=== PATIENT | male | born 1960 | race Two or more races ===

== ENCOUNTER 2021-08-12 07:25 | Inpatient (IN) | payer MEDICAID, OTHER ==
[~2021-08-12] VITALS: Ht 170.2 cm; Wt 112.0 kg
[2021-08-12] MEDS ORDERED: cefTRIAXone 1GM/50ML D5W 50 ML IV ONE (08:45)
[2021-08-12] MEDS ORDERED: AZITHROMYCIN 250 MG TAB PO ONE (08:45)
[2021-08-12 08:52] LABS: Basophils # (auto) 0 10 ^3/uL (0-0.2); Basophils % (auto) 0.3 % (0.0-2.0); Eosinophils # (auto) 0 10 ^3/uL (0-0.8); Hematocrit 46.2 % (41.0-53.0); Hemoglobin 15.9 g/dL (13.5-17.5); Lymphocytes # (auto) 2.2 10 ^3/uL (0.4-5.4); Lymphocytes % (auto) 33.7 % (10.0-50.0); Mean Corpuscular Hemoglobin 30.4 pg (28.0-32.0); Mean Corpuscular Hgb Conc. 34.4 g/dL (32.0-36.0); Mean Corpuscular Volume 88.4 fL (80.0-100.0); Monocytes # (auto) 0.6 10 ^3/uL (0-1.3); Monocytes % (auto) 9.2 % (0.0-12.0); Neutrophils # (auto) 3.7 10 ^3/uL (1.6-8.6); Neutrophils % (auto) 56.8 % (37.0-80.0); Nucleated Red Blood Cells % 0.1 %; Red Blood Cells 5.22 10^6/uL (4.5-5.90); Red Cell Distribution Width 13.3 % (11.8-14.3); White Blood Cell 6.6 10^3/uL (4.4-10.8)
[2021-08-12 09:06] LABS: Albumin 3.8 g/dL (3.4-5.0); Calcium 8.6 mg/dL (8.5-10.1); Magnesium 2.9 mg/dL (1.6-2.6); Potassium 3.6 mmol/L (3.5-5.1)
[2021-08-12 09:11] LABS: BUN/Creatinine Ratio 13.4; Bilirubin, Total 0.4 mg/dL (0.2-1.0); Total Protein 7.9 g/dL (6.4-8.2)
[2021-08-12] MEDS ORDERED: VENL75CA3 PO (09:18)
[2021-08-12] MEDS ORDERED: LEVE500T32 PO (09:18)
[2021-08-12] MEDS ORDERED: RIS1T PO (09:18)
[2021-08-12] MEDS ORDERED: LACO100T PO (09:18)
[2021-08-12] MEDS ORDERED: LABE100T4 PO (09:18)
[2021-08-12] MEDS ORDERED: LAMO200T2 PO (09:18)
[2021-08-12] MEDS ORDERED: FURO1TAB33 PO (09:18)
[2021-08-12] MEDS ORDERED: CLOB10TA PO (09:18)
[2021-08-12] MEDS ORDERED: MIRT-68 PO (09:18)
[2021-08-12] MEDS ORDERED: lamoTRIgine 100 MG TAB PO ONE (11:30)
[2021-08-12] MEDS ORDERED: levETIRAcetam 500 MG TAB PO ONE (11:30)
[2021-08-12] MEDS ORDERED: REMDESIVIR PER PHARMACY 0 ML IV SCH (12:00)
[2021-08-12] MEDS ORDERED: NITROGLYCERIN 0.4 MG SL TAB SL PRN (12:15)
[2021-08-12] MEDS ORDERED: DOCUSATE SOD 100 MG CAP PO PRN (12:15)
[2021-08-12] MEDS ORDERED: MORPHINE SULFATE 4 MG/ML SYR/VIAL IV PRN (12:15)
[2021-08-12] MEDS ORDERED: MORPHINE SULFATE INJECTION 2 MG/ML SYRG IV PRN (12:15)
[2021-08-12] MEDS ORDERED: ONDANSETRON HCL 4 MG/2 ML VIAL IV PRN (12:15)
[2021-08-12] MEDS ORDERED: TEMAZEPAM 15 MG CAP PO PRN (12:15)
[2021-08-12] MEDS ORDERED: HYDROcodone-ACET 5/325MG TAB PO PRN (12:15)
[2021-08-12] MEDS ORDERED: REMDESIVIR 200 MG in NS 210ml LOADING DOSE ADULT IV ONE (18:30)
[2021-08-12] MEDS: ALBUTEROL SULF HFA 90MCG INH 200DOSE IN PRN (19:51)
[2021-08-12] MEDS: BUDESONIDE (INHALATION) 180 MCG IH IN SCH (19:51)
[2021-08-12 20:38] LABS: Urine Bacteria FEW /hpf (None Seen); Urine Blood Negative /uL (Negative); Urine Mucus FEW (None Seen); Urine Specific Gravity 1.032 (1.001-1.035); Urine WBC 1 /hpf (0 - 3)
[2021-08-12] MEDS ORDERED: LACOSAMIDE 100 MG PO SCH (22:00)
[2021-08-12] MEDS ORDERED: LAMOTRIGINE PO SCH (22:00)
[2021-08-12] MEDS: levETIRAcetam 500 MG TAB PO SCH (22:28)
[2021-08-12] MEDS: ENOXAPARIN SOD 40 MG/0.4 ML SYRINGE SC SCH (22:29)
[2021-08-13 01:52] VITALS: BP 130/67
[2021-08-13 04:56] VITALS: BP 122/75
[2021-08-13] MEDS: BUDESONIDE (INHALATION) 180 MCG IH IN SCH ×2 (06:45→19:24)
[2021-08-13 07:33] LABS: Basophils # (auto) 0 10 ^3/uL (0-0.2); Basophils % (auto) 0.7 % (0.0-2.0); Eosinophils # (auto) 0 10 ^3/uL (0-0.8); Eosinophils % (auto) 0.2 % (0.0-7.0); Hematocrit 45.6 % (41.0-53.0); Hemoglobin 15.4 g/dL (13.5-17.5); Lymphocytes # (auto) 1.8 10 ^3/uL (0.4-5.4); Lymphocytes % (auto) 26.1 % (10.0-50.0); Mean Corpuscular Hemoglobin 30.2 pg (28.0-32.0); Mean Corpuscular Hgb Conc. 33.8 g/dL (32.0-36.0); Mean Corpuscular Volume 89.4 fL (80.0-100.0); Monocytes # (auto) 0.4 10 ^3/uL (0-1.3); Monocytes % (auto) 5.7 % (0.0-12.0); Neutrophils # (auto) 4.5 10 ^3/uL (1.6-8.6); Neutrophils % (auto) 67.3 % (37.0-80.0); Nucleated Red Blood Cells % 0.1 %; Red Cell Distribution Width 13.5 % (11.8-14.3); White Blood Cell 6.7 10^3/uL (4.4-10.8)
[2021-08-13 07:50] LABS: Potassium 3.9 mmol/L (3.5-5.1)
[2021-08-13 07:57] LABS: Albumin 3.4 g/dL (3.4-5.0); BUN/Creatinine Ratio 18.9; Bilirubin, Total 0.8 mg/dL (0.2-1.0); Calcium 7.9 mg/dL (8.5-10.1); Magnesium 3.4 mg/dL (1.6-2.6); Total Protein 6.7 g/dL (6.4-8.2)
[2021-08-13] MEDS: ALBUTEROL SULF HFA 90MCG INH 200DOSE IN PRN ×2 (08:47→23:26)
[2021-08-13 09:00] VITALS: BP 127/77
[2021-08-13] MEDS: DexAMETHasone SOD PHOS 10MG/1ML VIAL INJ IV SCH (09:21)
[2021-08-13] MEDS: ENOXAPARIN SOD 40 MG/0.4 ML SYRINGE SC SCH ×2 (09:21→21:57)
[2021-08-13] MEDS: AZITHROMYCIN 500MG/ 250ML 250 ML IV SCH (09:21)
[2021-08-13] MEDS: ASCORBIC ACID 1,000 MG TAB PO SCH (09:22)
[2021-08-13] MEDS: levETIRAcetam 500 MG TAB PO SCH ×2 (09:22→21:46)
[2021-08-13] MEDS: ZINC SULFATE 220mg CAP or TAB PO SCH (09:22)
[2021-08-13] MEDS: CHOLECALCIFEROL (VITD3) 2,000 UNIT CAP/TAB PO SCH (09:22)
[2021-08-13] MEDS: VENLAFAXINE HCL 37.5mg XR cap PO SCH (09:23)
[2021-08-13] MEDS: ACETAMINOPHEN 500 MG TAB PO PRN (09:32)
[2021-08-13 12:32] VITALS: BP 111/66
[2021-08-13] MEDS: REMDESIVIR 100mg 100 MG in SODIUM CHL 0.9% 230 ML IV SCH (15:19)
[2021-08-13 16:34] VITALS: BP 106/62
[2021-08-13] MEDS: risperiDONE 1 MG TAB PO SCH (21:43)
[2021-08-13] MEDS: LACOSAMIDE 50 MG TAB PO SCH (21:45)
[2021-08-13] MEDS: lamoTRIgine 100 MG TAB PO SCH (21:45)
[2021-08-13 22:00] VITALS: BP 126/76
[2021-08-14 05:00] VITALS: BP 119/82
[2021-08-14 09:28] VITALS: BP 121/76
[2021-08-14] MEDS: BUDESONIDE (INHALATION) 180 MCG IH IN SCH ×2 (09:31→19:14)
[2021-08-14] MEDS: ALBUTEROL SULF HFA 90MCG INH 200DOSE IN PRN ×2 (09:31→19:14)
[2021-08-14] MEDS: CHOLECALCIFEROL (VITD3) 2,000 UNIT CAP/TAB PO SCH (10:00)
[2021-08-14] MEDS: LACOSAMIDE 50 MG TAB PO SCH ×2 (10:00→22:27)
[2021-08-14] MEDS: AZITHROMYCIN 500MG/ 250ML 250 ML IV SCH (10:04)
[2021-08-14] MEDS: ENOXAPARIN SOD 40 MG/0.4 ML SYRINGE SC SCH ×2 (10:04→22:28)
[2021-08-14] MEDS: VENLAFAXINE HCL 37.5mg XR cap PO SCH (10:05)
[2021-08-14] MEDS: lamoTRIgine 100 MG TAB PO SCH ×2 (10:05→22:27)
[2021-08-14] MEDS: ASCORBIC ACID 1,000 MG TAB PO SCH (10:05)
[2021-08-14] MEDS: ZINC SULFATE 220mg CAP or TAB PO SCH (10:05)
[2021-08-14] MEDS: levETIRAcetam 500 MG TAB PO SCH ×2 (10:05→22:27)
[2021-08-14] MEDS: DexAMETHasone SOD PHOS 10MG/1ML VIAL INJ IV SCH (10:05)
[2021-08-14 13:00] VITALS: BP 103/55
[2021-08-14] MEDS: REMDESIVIR 100mg 100 MG in SODIUM CHL 0.9% 230 ML IV SCH (15:07)
[2021-08-14 17:21] VITALS: BP 113/53
[2021-08-14 18:09] LABS: Albumin 3.1 g/dL (3.4-5.0); Calcium 7.8 mg/dL (8.5-10.1); Potassium 4.4 mmol/L (3.5-5.1)
[2021-08-14 18:12] LABS: Bilirubin, Total 0.4 mg/dL (0.2-1.0); Total Protein 6.6 g/dL (6.4-8.2)
[2021-08-14 22:00] VITALS: BP 104/62
[2021-08-14] MEDS: risperiDONE 1 MG TAB PO SCH (22:27)
[2021-08-15 05:00] VITALS: BP 101/59
[2021-08-15 05:59] LABS: Albumin 2.9 g/dL (3.4-5.0); BUN/Creatinine Ratio 25.3; Calcium 8.1 mg/dL (8.5-10.1); Potassium 4.4 mmol/L (3.5-5.1)
[2021-08-15 06:02] LABS: Bilirubin, Total 0.4 mg/dL (0.2-1.0); Total Protein 6.3 g/dL (6.4-8.2)
[2021-08-15 08:00] VITALS: BP 105/65
[2021-08-15] MEDS: BUDESONIDE (INHALATION) 180 MCG IH IN SCH ×2 (09:11→20:17)
[2021-08-15] MEDS: ALBUTEROL SULF HFA 90MCG INH 200DOSE IN PRN ×2 (09:11→20:18)
[2021-08-15] MEDS: DexAMETHasone SOD PHOS 10MG/1ML VIAL INJ IV SCH (10:01)
[2021-08-15] MEDS: AZITHROMYCIN 500MG/ 250ML 250 ML IV SCH (10:01)
[2021-08-15] MEDS: ZINC SULFATE 220mg CAP or TAB PO SCH (10:02)
[2021-08-15] MEDS: levETIRAcetam 500 MG TAB PO SCH ×2 (10:03→22:43)
[2021-08-15] MEDS: lamoTRIgine 100 MG TAB PO SCH ×2 (10:03→22:43)
[2021-08-15] MEDS: VENLAFAXINE HCL 37.5mg XR cap PO SCH (10:03)
[2021-08-15] MEDS: LACOSAMIDE 50 MG TAB PO SCH ×2 (10:04→22:43)
[2021-08-15] MEDS: ASCORBIC ACID 1,000 MG TAB PO SCH (10:04)
[2021-08-15] MEDS: CHOLECALCIFEROL (VITD3) 2,000 UNIT CAP/TAB PO SCH (10:04)
[2021-08-15] MEDS: ENOXAPARIN SOD 40 MG/0.4 ML SYRINGE SC SCH ×2 (10:04→22:44)
[2021-08-15 12:00] VITALS: BP 109/66
[2021-08-15] MEDS: REMDESIVIR 100mg 100 MG in SODIUM CHL 0.9% 230 ML IV SCH (15:31)
[2021-08-15 16:00] VITALS: BP 120/75
[2021-08-15 22:00] VITALS: BP 115/78
[2021-08-15] MEDS: risperiDONE 1 MG TAB PO SCH (22:43)
[2021-08-16 05:00] VITALS: BP 107/65
[2021-08-16] MEDS: ALBUTEROL SULF HFA 90MCG INH 200DOSE IN PRN ×2 (05:44→19:05)
[2021-08-16] MEDS: BUDESONIDE (INHALATION) 180 MCG IH IN SCH ×2 (05:44→19:05)
[2021-08-16 06:23] LABS: Albumin 2.8 g/dL (3.4-5.0); Anion Gap 6 (5-15); Calcium 8.2 mg/dL (8.5-10.1); Carbon Dioxide 27 mmol/L (21-32); Chloride 109 mmol/L (98-107); Glucose 180 mg/dL (74-106); Potassium 4.4 mmol/L (3.5-5.1); Sodium 142 mmol/L (136-145)
[2021-08-16 06:25] LABS: GFR African American 120 mL/min; GFR Non-African American 99 mL/min
[2021-08-16 06:28] LABS: Alanine Aminotransferase 37 U/L (16-61); Alkaline Phosphatase 42 U/L (45-117); Aspartate Aminotransferase 45 U/L (15-37); Bilirubin, Total 0.6 mg/dL (0.2-1.0); Total Protein 6.7 g/dL (6.4-8.2)
[2021-08-16 08:00] VITALS: BP 128/91
[2021-08-16 09:00] VITALS: BP 138/76
[2021-08-16 09:47] LABS: BUN/Creatinine Ratio 22.6; Blood Urea Nitrogen 19 mg/dL (7-18)
[2021-08-16] MEDS: DexAMETHasone SOD PHOS 10MG/1ML VIAL INJ IV SCH (10:39)
[2021-08-16] MEDS: LACOSAMIDE 50 MG TAB PO SCH ×2 (10:39→21:48)
[2021-08-16] MEDS: ENOXAPARIN SOD 40 MG/0.4 ML SYRINGE SC SCH ×2 (10:39→21:48)
[2021-08-16] MEDS: VENLAFAXINE HCL 37.5mg XR cap PO SCH (10:40)
[2021-08-16] MEDS: ZINC SULFATE 220mg CAP or TAB PO SCH (10:40)
[2021-08-16] MEDS: CHOLECALCIFEROL (VITD3) 2,000 UNIT CAP/TAB PO SCH (10:40)
[2021-08-16] MEDS: lamoTRIgine 100 MG TAB PO SCH ×2 (10:40→21:48)
[2021-08-16] MEDS: levETIRAcetam 500 MG TAB PO SCH ×2 (10:41→21:48)
[2021-08-16] MEDS: ASCORBIC ACID 1,000 MG TAB PO SCH (10:42)
[2021-08-16] MEDS: AZITHROMYCIN 500MG/ 250ML 250 ML IV SCH (11:28)
[2021-08-16 13:00] VITALS: BP 128/91
[2021-08-16] MEDS: REMDESIVIR 100mg 100 MG in SODIUM CHL 0.9% 230 ML IV SCH (16:07)
[2021-08-16 17:00] VITALS: BP 144/68
[2021-08-16 21:42] VITALS: BP 125/71
[2021-08-16] MEDS: risperiDONE 1 MG TAB PO SCH (21:48)
[2021-08-17 05:00] VITALS: BP 122/70
[2021-08-17 08:47] VITALS: BP 133/73
[2021-08-17] MEDS: ALBUTEROL SULF HFA 90MCG INH 200DOSE IN PRN ×2 (09:29→19:31)
[2021-08-17] MEDS: BUDESONIDE (INHALATION) 180 MCG IH IN SCH ×2 (09:29→18:53)
[2021-08-17] MEDS: DexAMETHasone SOD PHOS 10MG/1ML VIAL INJ IV SCH (10:00)
[2021-08-17] MEDS: AZITHROMYCIN 500MG/ 250ML 250 ML IV SCH (10:00)
[2021-08-17] MEDS: levETIRAcetam 500 MG TAB PO SCH ×2 (10:30→21:31)
[2021-08-17] MEDS: VENLAFAXINE HCL 37.5mg XR cap PO SCH (10:30)
[2021-08-17] MEDS: ZINC SULFATE 220mg CAP or TAB PO SCH (10:30)
[2021-08-17] MEDS: lamoTRIgine 100 MG TAB PO SCH ×2 (10:30→21:31)
[2021-08-17] MEDS: CHOLECALCIFEROL (VITD3) 2,000 UNIT CAP/TAB PO SCH (10:31)
[2021-08-17] MEDS: ASCORBIC ACID 1,000 MG TAB PO SCH (10:31)
[2021-08-17] MEDS: ENOXAPARIN SOD 40 MG/0.4 ML SYRINGE SC SCH ×2 (10:31→21:32)
[2021-08-17] MEDS: LACOSAMIDE 50 MG TAB PO SCH ×2 (10:31→21:32)
[2021-08-17 12:47] VITALS: BP 125/69
[2021-08-17 17:00] VITALS: BP 125/79
[2021-08-17] MEDS: risperiDONE 1 MG TAB PO SCH (21:32)
[2021-08-17 21:33] VITALS: BP 132/74
[2021-08-18 04:30] VITALS: BP 124/82
[2021-08-18] MEDS: ALBUTEROL SULF HFA 90MCG INH 200DOSE IN PRN ×2 (06:55→19:06)
[2021-08-18] MEDS: BUDESONIDE (INHALATION) 180 MCG IH IN SCH ×3 (06:55→19:06)
[2021-08-18 08:00] VITALS: BP 119/58
[2021-08-18] MEDS: ASCORBIC ACID 1,000 MG TAB PO SCH (10:00)
[2021-08-18] MEDS: ZINC SULFATE 220mg CAP or TAB PO SCH (10:00)
[2021-08-18] MEDS: CHOLECALCIFEROL (VITD3) 2,000 UNIT CAP/TAB PO SCH (10:00)
[2021-08-18] MEDS: HALOPERIDOL LACTATE 5 MG/ML INJ VIAL IM PRN (10:53)
[2021-08-18 12:00] VITALS: BP 137/71
[2021-08-18] MEDS: levETIRAcetam 500 MG TAB PO SCH ×2 (15:53→22:24)
[2021-08-18] MEDS: VENLAFAXINE HCL 37.5mg XR cap PO SCH (15:53)
[2021-08-18] MEDS: lamoTRIgine 100 MG TAB PO SCH ×2 (15:53→22:25)
[2021-08-18] MEDS: DexAMETHasone SOD PHOS 10MG/1ML VIAL INJ IV SCH (15:53)
[2021-08-18] MEDS: LACOSAMIDE 50 MG TAB PO SCH ×2 (15:54→22:25)
[2021-08-18] MEDS: ENOXAPARIN SOD 40 MG/0.4 ML SYRINGE SC SCH ×2 (15:54→22:26)
[2021-08-18 16:00] VITALS: BP 137/72
[2021-08-18 22:00] VITALS: BP 143/84
[2021-08-18] MEDS: risperiDONE 1 MG TAB PO SCH (22:25)
[2021-08-19 05:00] VITALS: BP 113/72
[2021-08-19] MEDS: ALBUTEROL SULF HFA 90MCG INH 200DOSE IN PRN ×2 (06:00→21:47)
[2021-08-19] MEDS: BUDESONIDE (INHALATION) 180 MCG IH IN SCH ×2 (06:00→21:47)
[2021-08-19 08:00] VITALS: BP 115/62
[2021-08-19 10:25] LABS: Basophils # (auto) 0 10 ^3/uL (0-0.2); Basophils % (auto) 0.3 % (0.0-2.0); Eosinophils # (auto) 0 10 ^3/uL (0-0.8); Eosinophils % (auto) 0.1 % (0.0-7.0); Hematocrit 41.6 % (41.0-53.0); Hemoglobin 14.1 g/dL (13.5-17.5); Lymphocytes % (auto) 11.1 % (10.0-50.0); Mean Corpuscular Hemoglobin 30.2 pg (28.0-32.0); Mean Corpuscular Volume 88.7 fL (80.0-100.0); Monocytes # (auto) 0.8 10 ^3/uL (0-1.3); Monocytes % (auto) 8.5 % (0.0-12.0); Neutrophils # (auto) 7.2 10 ^3/uL (1.6-8.6); Nucleated Red Blood Cells % 0.1 %; Red Blood Cells 4.69 10^6/uL (4.5-5.90); White Blood Cell 9.1 10^3/uL (4.4-10.8)
[2021-08-19 10:44] LABS: Albumin 2.7 g/dL (3.4-5.0); Calcium 8.3 mg/dL (8.5-10.1); Potassium 4.1 mmol/L (3.5-5.1)
[2021-08-19 10:48] LABS: BUN/Creatinine Ratio 27.2; Bilirubin, Total 0.6 mg/dL (0.2-1.0); Total Protein 6.3 g/dL (6.4-8.2)
[2021-08-19] MEDS: DexAMETHasone SOD PHOS 10MG/1ML VIAL INJ IV SCH (10:49)
[2021-08-19] MEDS: lamoTRIgine 100 MG TAB PO SCH ×2 (10:50→22:37)
[2021-08-19] MEDS: levETIRAcetam 500 MG TAB PO SCH ×2 (10:50→22:37)
[2021-08-19] MEDS: ZINC SULFATE 220mg CAP or TAB PO SCH (10:50)
[2021-08-19] MEDS: VENLAFAXINE HCL 37.5mg XR cap PO SCH (10:50)
[2021-08-19] MEDS: CHOLECALCIFEROL (VITD3) 2,000 UNIT CAP/TAB PO SCH (10:51)
[2021-08-19] MEDS: ASCORBIC ACID 1,000 MG TAB PO SCH (10:51)
[2021-08-19] MEDS: LACOSAMIDE 50 MG TAB PO SCH ×2 (10:51→22:38)
[2021-08-19] MEDS: ENOXAPARIN SOD 40 MG/0.4 ML SYRINGE SC SCH ×2 (10:51→22:38)
[2021-08-19] MEDS: HALOPERIDOL LACTATE 5 MG/ML INJ VIAL IM PRN (10:54)
[2021-08-19 12:00] VITALS: BP 113/63
[2021-08-19 16:00] VITALS: BP 104/61
[2021-08-19] MEDS: Glucerna Carbsteady SHAKE Vanilla 8oz PO SCH (18:00)
[2021-08-19 22:00] VITALS: BP 121/69
[2021-08-19] MEDS: risperiDONE 1 MG TAB PO SCH (22:38)
[2021-08-20] MEDS: LORazepam 2MG/ML-1ML VIAL IV PRN ×2 (04:03→22:54)
[2021-08-20 05:00] VITALS: BP 130/70
[2021-08-20 06:09] LABS: Basophils # (auto) 0 10 ^3/uL (0-0.2); Hemoglobin 14.3 g/dL (13.5-17.5); Lymphocytes # (auto) 1.3 10 ^3/uL (0.4-5.4); Monocytes # (auto) 0.7 10 ^3/uL (0-1.3); Nucleated Red Blood Cells % 0.1 %; Red Cell Distribution Width 13.3 % (11.8-14.3)
[2021-08-20 06:15] LABS: Basophils % (auto) 0.3 % (0.0-2.0); Eosinophils # (auto) 0.1 10 ^3/uL (0-0.8); Eosinophils % (auto) 0.5 % (0.0-7.0); Hematocrit 42.4 % (41.0-53.0); Lymphocytes % (auto) 12.7 % (10.0-50.0); Mean Corpuscular Hemoglobin 30.2 pg (28.0-32.0); Mean Corpuscular Hgb Conc. 33.8 g/dL (32.0-36.0); Mean Corpuscular Volume 89.3 fL (80.0-100.0); Monocytes % (auto) 7.5 % (0.0-12.0); Neutrophils # (auto) 7.9 10 ^3/uL (1.6-8.6); Red Blood Cells 4.75 10^6/uL (4.5-5.90)
[2021-08-20 06:41] LABS: Albumin 2.6 g/dL (3.4-5.0); BUN/Creatinine Ratio 20.6; Bilirubin, Total 0.6 mg/dL (0.2-1.0); CRP High Sensitivity 14.2 mg/dL (< 0.3); Calcium 8.6 mg/dL (8.5-10.1); Magnesium 2.4 mg/dL (1.6-2.6); Phosphorus 2.8 mg/dL (2.5-4.90); Total Protein 7.4 g/dL (6.4-8.2)
[2021-08-20] MEDS: BUDESONIDE (INHALATION) 180 MCG IH IN SCH ×2 (07:20→22:11)
[2021-08-20] MEDS: ALBUTEROL SULF HFA 90MCG INH 200DOSE IN PRN (07:20)
[2021-08-20] MEDS: Glucerna Carbsteady SHAKE Vanilla 8oz PO SCH ×3 (08:00→18:05)
[2021-08-20 09:00] VITALS: BP 118/70
[2021-08-20] MEDS: CHOLECALCIFEROL (VITD3) 2,000 UNIT CAP/TAB PO SCH (10:00)
[2021-08-20] MEDS: LACOSAMIDE 50 MG TAB PO SCH ×2 (10:00→22:14)
[2021-08-20] MEDS: ZINC SULFATE 220mg CAP or TAB PO SCH (10:00)
[2021-08-20] MEDS: ASCORBIC ACID 1,000 MG TAB PO SCH (10:00)
[2021-08-20] MEDS: ENOXAPARIN SOD 40 MG/0.4 ML SYRINGE SC SCH ×2 (10:00→22:14)
[2021-08-20] MEDS: lamoTRIgine 100 MG TAB PO SCH ×2 (10:00→22:13)
[2021-08-20] MEDS: DexAMETHasone SOD PHOS 10MG/1ML VIAL INJ IV SCH (10:00)
[2021-08-20 10:05] VITALS: BP 118/70
[2021-08-20] MEDS: VENLAFAXINE HCL 37.5mg XR cap PO SCH (10:30)
[2021-08-20] MEDS: levETIRAcetam 500 MG TAB PO SCH ×2 (12:24→22:12)
[2021-08-20 13:00] VITALS: BP 120/67
[2021-08-20 16:54] VITALS: BP 107/65
[2021-08-20] MEDS: risperiDONE 1 MG TAB PO SCH (22:13)
[2021-08-21] MEDS: ALBUTEROL SULF HFA 90MCG INH 200DOSE IN PRN ×2 (01:58→13:50)
[2021-08-21 05:00] VITALS: BP 136/63
[2021-08-21] MEDS: Glucerna Carbsteady SHAKE Vanilla 8oz PO SCH ×3 (07:48→17:46)
[2021-08-21 09:00] VITALS: BP 118/72
[2021-08-21] MEDS: ENOXAPARIN SOD 40 MG/0.4 ML SYRINGE SC SCH ×3 (10:00→23:11)
[2021-08-21] MEDS: VENLAFAXINE HCL 37.5mg XR cap PO SCH (10:00)
[2021-08-21] MEDS: ZINC SULFATE 220mg CAP or TAB PO SCH (10:00)
[2021-08-21] MEDS: LACOSAMIDE 50 MG TAB PO SCH ×2 (10:00→23:11)
[2021-08-21] MEDS: lamoTRIgine 100 MG TAB PO SCH ×2 (10:00→23:11)
[2021-08-21] MEDS: ASCORBIC ACID 1,000 MG TAB PO SCH (10:00)
[2021-08-21] MEDS: CHOLECALCIFEROL (VITD3) 2,000 UNIT CAP/TAB PO SCH (10:00)
[2021-08-21] MEDS: DexAMETHasone SOD PHOS 10MG/1ML VIAL INJ IV SCH (11:06)
[2021-08-21 13:00] VITALS: BP 120/68
[2021-08-21] MEDS: BUDESONIDE (INHALATION) 180 MCG IH IN SCH ×2 (13:50→22:00)
[2021-08-21 16:51] VITALS: BP 116/57
[2021-08-21] MEDS: LORazepam 2MG/ML-1ML VIAL IV PRN (17:47)
[2021-08-21 22:00] VITALS: BP 112/61
[2021-08-21] MEDS: risperiDONE 1 MG TAB PO SCH (23:11)
[2021-08-22 05:00] VITALS: BP 131/72
[2021-08-22] MEDS: ALBUTEROL SULF HFA 90MCG INH 200DOSE IN PRN ×2 (06:34→21:49)
[2021-08-22] MEDS: BUDESONIDE (INHALATION) 180 MCG IH IN SCH ×2 (06:34→21:49)
[2021-08-22 07:25] LABS: Basophils # (auto) 0.2 10 ^3/uL (0-0.2); Basophils % (auto) 1.6 % (0.0-2.0); Eosinophils # (auto) 0.1 10 ^3/uL (0-0.8); Eosinophils % (auto) 0.9 % (0.0-7.0); Hematocrit 42.9 % (41.0-53.0); Hemoglobin 14.1 g/dL (13.5-17.5); Lymphocytes # (auto) 0.7 10 ^3/uL (0.4-5.4); Lymphocytes % (auto) 6.5 % (10.0-50.0); Mean Corpuscular Hemoglobin 29.9 pg (28.0-32.0); Mean Corpuscular Hgb Conc. 32.9 g/dL (32.0-36.0); Mean Corpuscular Volume 90.8 fL (80.0-100.0); Monocytes # (auto) 0.5 10 ^3/uL (0-1.3); Monocytes % (auto) 4.7 % (0.0-12.0); Neutrophils # (auto) 9.6 10 ^3/uL (1.6-8.6); Neutrophils % (auto) 86.3 % (37.0-80.0); Nucleated Red Blood Cells % 0.1 %; Red Blood Cells 4.73 10^6/uL (4.5-5.90); Red Cell Distribution Width 13.5 % (11.8-14.3); White Blood Cell 11.2 10^3/uL (4.4-10.8)
[2021-08-22 07:30] LABS: Albumin 2.5 g/dL (3.4-5.0); Calcium 8.3 mg/dL (8.5-10.1); Magnesium 3.5 mg/dL (1.6-2.6); Potassium 4.3 mmol/L (3.5-5.1)
[2021-08-22 07:34] LABS: BUN/Creatinine Ratio 30.2; Bilirubin, Total 0.7 mg/dL (0.2-1.0); Phosphorus 2.7 mg/dL (2.5-4.90); Total Protein 6.6 g/dL (6.4-8.2)
[2021-08-22] MEDS: Glucerna Carbsteady SHAKE Vanilla 8oz PO SCH ×3 (07:51→18:17)
[2021-08-22 09:00] VITALS: BP 123/66
[2021-08-22] MEDS: VENLAFAXINE HCL 37.5mg XR cap PO SCH (10:39)
[2021-08-22] MEDS: ZINC SULFATE 220mg CAP or TAB PO SCH (10:39)
[2021-08-22] MEDS: DexAMETHasone SOD PHOS 10MG/1ML VIAL INJ IV SCH (10:39)
[2021-08-22] MEDS: ASCORBIC ACID 1,000 MG TAB PO SCH (10:39)
[2021-08-22] MEDS: LACOSAMIDE 50 MG TAB PO SCH ×2 (10:39→23:19)
[2021-08-22] MEDS: CHOLECALCIFEROL (VITD3) 2,000 UNIT CAP/TAB PO SCH (10:40)
[2021-08-22] MEDS: lamoTRIgine 100 MG TAB PO SCH ×2 (10:40→23:17)
[2021-08-22] MEDS: ENOXAPARIN SOD 40 MG/0.4 ML SYRINGE SC SCH ×2 (10:40→23:19)
[2021-08-22 13:00] VITALS: BP 126/70
[2021-08-22] MEDS: ACETAMINOPHEN 500 MG TAB PO PRN (14:57)
[2021-08-22 17:00] VITALS: BP 122/71
[2021-08-22] MEDS: SODIUM CHLORIDE 0.9% 1,000 ML IV SCH (18:17)
[2021-08-22 22:00] VITALS: BP 139/74
[2021-08-22] MEDS: risperiDONE 1 MG TAB PO SCH (23:18)
[2021-08-23 05:00] VITALS: BP 123/71
[2021-08-23] MEDS: BUDESONIDE (INHALATION) 180 MCG IH IN SCH ×2 (05:50→22:44)
[2021-08-23] MEDS: ALBUTEROL SULF HFA 90MCG INH 200DOSE IN PRN (05:50)
[2021-08-23] MEDS: Glucerna Carbsteady SHAKE Vanilla 8oz PO SCH ×3 (07:55→17:46)
[2021-08-23 09:00] VITALS: BP 124/66
[2021-08-23] MEDS: ACETAMINOPHEN 500 MG TAB PO PRN (10:00)
[2021-08-23] MEDS: VENLAFAXINE HCL 37.5mg XR cap PO SCH (10:12)
[2021-08-23] MEDS: ZINC SULFATE 220mg CAP or TAB PO SCH (10:12)
[2021-08-23] MEDS: DexAMETHasone SOD PHOS 10MG/1ML VIAL INJ IV SCH (10:12)
[2021-08-23] MEDS: LACOSAMIDE 50 MG TAB PO SCH ×2 (10:13→22:00)
[2021-08-23] MEDS: ENOXAPARIN SOD 40 MG/0.4 ML SYRINGE SC SCH ×2 (10:13→22:01)
[2021-08-23] MEDS: ASCORBIC ACID 1,000 MG TAB PO SCH (10:13)
[2021-08-23] MEDS: lamoTRIgine 100 MG TAB PO SCH ×2 (10:13→22:00)
[2021-08-23] MEDS: CHOLECALCIFEROL (VITD3) 2,000 UNIT CAP/TAB PO SCH (10:13)
[2021-08-23 12:47] VITALS: BP 131/73
[2021-08-23] MEDS: SODIUM CHLORIDE 0.9% 1,000 ML IV SCH (16:30)
[2021-08-23 16:37] VITALS: BP 133/76
[2021-08-23 21:43] VITALS: BP 124/81
[2021-08-23] MEDS: risperiDONE 1 MG TAB PO SCH (22:00)
[2021-08-23] MEDS: LORazepam 2MG/ML-1ML VIAL IV PRN (23:28)
[2021-08-24] MEDS: ALBUTEROL SULF HFA 90MCG INH 200DOSE IN PRN (00:27)
[2021-08-24] MEDS: LORazepam 2MG/ML-1ML VIAL IV PRN (01:59)
[2021-08-24 05:00] VITALS: BP 126/78
[2021-08-24 07:40] LABS: Basophils # (auto) 0.1 10 ^3/uL (0-0.2); Basophils % (auto) 0.5 % (0.0-2.0); Eosinophils # (auto) 0 10 ^3/uL (0-0.8); Eosinophils % (auto) 0.3 % (0.0-7.0); Hematocrit 43.3 % (41.0-53.0); Hemoglobin 14.4 g/dL (13.5-17.5); Lymphocytes # (auto) 1.3 10 ^3/uL (0.4-5.4); Lymphocytes % (auto) 10.2 % (10.0-50.0); Mean Corpuscular Hemoglobin 30.3 pg (28.0-32.0); Mean Corpuscular Hgb Conc. 33.2 g/dL (32.0-36.0); Mean Corpuscular Volume 91.3 fL (80.0-100.0); Monocytes # (auto) 0.8 10 ^3/uL (0-1.3); Neutrophils # (auto) 10.8 10 ^3/uL (1.6-8.6); Red Blood Cells 4.75 10^6/uL (4.5-5.90); Red Cell Distribution Width 13.2 % (11.8-14.3); White Blood Cell 13.1 10^3/uL (4.4-10.8)
[2021-08-24 07:47] LABS: Potassium 4.5 mmol/L (3.5-5.1)
[2021-08-24 07:56] LABS: Albumin 2.3 g/dL (3.4-5.0); Bilirubin, Total 0.5 mg/dL (0.2-1.0); Calcium 8.5 mg/dL (8.5-10.1); Magnesium 3.7 mg/dL (1.6-2.6); Total Protein 6.5 g/dL (6.4-8.2)
[2021-08-24] MEDS: Glucerna Carbsteady SHAKE Vanilla 8oz PO SCH ×2 (08:00→12:00)
[2021-08-24] MEDS: DexAMETHasone SOD PHOS 10MG/1ML VIAL INJ IV SCH (08:45)
[2021-08-24] MEDS: ZINC SULFATE 220mg CAP or TAB PO SCH (08:46)
[2021-08-24] MEDS: lamoTRIgine 100 MG TAB PO SCH (08:46)
[2021-08-24] MEDS: VENLAFAXINE HCL 37.5mg XR cap PO SCH (08:46)
[2021-08-24] MEDS: LACOSAMIDE 50 MG TAB PO SCH (08:47)
[2021-08-24] MEDS: ASCORBIC ACID 1,000 MG TAB PO SCH (08:47)
[2021-08-24] MEDS: CHOLECALCIFEROL (VITD3) 2,000 UNIT CAP/TAB PO SCH (08:47)
[2021-08-24 09:00] VITALS: BP 110/67
[2021-08-24] MEDS ORDERED: LORazepam 2MG/ML-1ML VIAL IV PRN (12:15)
[2021-08-24] MEDS ORDERED: MORPHINE SULFATE INJECTION 2 MG/ML SYRG IV PRN (12:15)
== END 2021-08-24 13:35 | DRG 137 ==
LOC: ER 07:25 → TELE 12:02 → TELE-E-ADS 23:10
PROVIDERS: ADMIT Nurse Practitioner; ATTEND Nurse Practitioner
PROC: XW033E5 Introduction of Remdesivir Anti-infective into Peripheral Vein, Percutaneous Approach, New Technology Group 5 (ICD-10-PCS; principal; 2021-08-12)
PROC: 05HA33Z Insertion of Infusion Device into Left Brachial Vein, Percutaneous Approach (ICD-10-PCS; 2021-08-12)
PROC: B54NZZA Ultrasonography of Left Upper Extremity Veins, Guidance (ICD-10-PCS; 2021-08-12)
PROC: 05H933Z Insertion of Infusion Device into Right Brachial Vein, Percutaneous Approach (ICD-10-PCS; 2021-08-18)
PROC: B54MZZA Ultrasonography of Right Upper Extremity Veins, Guidance (ICD-10-PCS; 2021-08-18)
PROC: 5A0935A Assistance with Respiratory Ventilation, Less than 24 Consecutive Hours, High Flow/Velocity Cannula (ICD-10-PCS; 2021-08-20)
PROC: 5A09457 Assistance with Respiratory Ventilation, 24-96 Consecutive Hours, Continuous Positive Airway Pressure (ICD-10-PCS; 2021-08-20)
DX: U07.1 COVID-19 (principal); J96.01 Acute respiratory failure with hypoxia; J12.82 Pneumonia due to coronavirus disease 2019; G93.41 Metabolic encephalopathy; J98.11 Atelectasis; F20.9 Schizophrenia, unspecified; E66.9 Obesity, unspecified; Z68.32 Body mass index [BMI] 32.0-32.9, adult; F41.9 Anxiety disorder, unspecified; E88.09 Other disorders of plasma-protein metabolism, not elsewhere classified; G40.409 Other generalized epilepsy and epileptic syndromes, not intractable, without status epilepticus; Z53.20 Procedure and treatment not carried out because of patient's decision for unspecified reasons; Z66 Do not resuscitate; Z83.3 Family history of diabetes mellitus; Z79.899 Other long term (current) drug therapy; Z23 Encounter for immunization; Z51.5 Encounter for palliative care
CPT/HCPCS: 36415; 36600; 71045; 71046; 80053; 81001; 82306; 82728; 82805; 82962; 83036; 83605; 83615; 83735; 83880; 84100; 84443; 84484; 85025; 85379; 86141; 87040; 87426; 93005; 93306; 93970; 94640; 94660; 95819; 96365; G0378; J0696; J1100; J7060